=== PATIENT | female | born 1960 | race Caucasian/White ===

== ENCOUNTER 2018-06-18 11:22 | Inpatient (IN) ==
--- NOTE | 2018-06-18 11:52 | ED ---
HPI General Chief complaint: Abdominal Pain Stated complaint: n/v x 3 days Time Seen by Provider: 06/18/18 11:38 Source: patient Mode of arrival: ambulatory Limitations: no limitations History of Present Illness HPI narrative: This 58-year-old female says that for the past 5 days she has been having epigastric pain. Pain comes and goes and can be quite severe at times. She is not having it right now. She went to urgent care center 4 days ago and was diagnosed with gastric reflux and was started on Protonix. She says she has not had any improvement with the Protonix. She has never had an endoscopy she has no history of abdominal surgery she has had a weight loss of 30 pounds over the past year and a half the weight watchers. She has had a sternotomy and open heart surgery at the age of 23. She does sometimes taste her food when she is having the pain. She has not noted particular foods that make it worse. Related Data Home Medications Medication Instructions Recorded Confirmed Multi Vitamin 06/18/18 calcium carbonate-vitamin D3 1 tab PO DAILY 06/18/18 06/18/18 [Calcium 600 + D(3)] pantoprazole [Protonix] 40 mg PO DAILY 06/18/18 06/18/18 Allergies Allergy/AdvReac Type Severity Reaction Status Date / Time No Known Allergies Allergy Verified 06/18/18 11:29 Review of Systems ROS: all other systems reviewed are negative [facility] Medical History Medical History History of anxiety (Acute) Surgical History Surgical History History of heart surgery (Acute) Social History Social History Substance History: No History of Abuse Second Hand Smoke Exposure: No Smoking Status: Never smoker How Often Do You Have a Drink Containing Alcohol: 2 to 3 times a week Exam Narrative Exam Narrative: GENERAL: Well-developed female SKIN: Focused skin assessment warm/dry. HEAD: Atraumatic. Normocephalic. EYES: Pupils equal and round. No scleral icterus. No injection or drainage. ENT: No nasal bleeding or discharge. Mucous membranes pink and moist. NECK: Trachea midline. No JVD. CARDIOVASCULAR: Regular rate and rhythm. . RESPIRATORY: No accessory muscle use. Clear to auscultation. Breath sounds equal bilaterally. GASTROINTESTINAL: Abdomen soft, there is some epigastric and right upper quadrant tenderness without guarding or rigidity, nondistended. Hepatic and splenic margins not palpable. MUSCULOSKELETAL: No obvious deformities. No clubbing. No cyanosis. No edema. NEUROLOGICAL: Awake and alert. No obvious cranial nerve deficits. Motor grossly within normal limits. Normal speech. PSYCHIATRIC: Appropriate mood and affect; insight and judgment normal. Course Initial Documented Vital Signs Temperature 97.9 F 06/18/18 11:26 Pulse Rate 82 06/18/18 11:26 Respiratory Rate 16 06/18/18 11:26 Blood Pressure 181/88 H 06/18/18 11:26 Pulse Oximetry 98 06/18/18 11:26 Last Documented Vital Signs Temperature 97.9 F 06/18/18 11:26 Pulse Rate 74 06/18/18 14:22 Respiratory Rate 16 06/18/18 14:22 Blood Pressure 170/88 H 06/18/18 14:22 Pulse Oximetry 99 06/18/18 14:22 Sign Out Sign Out Data: Patient Sign Out occurred on 06/18/18 at 15:58. Patient's care was discussed, and care was transferred from Taras Leigh MD to Abdoul Melendez MD. Sign Out Comment: This lady had presented with abdominal pain which is been going on for about 5 days. She does have abnormal liver function tests and elevated bilirubin. Ultrasound did not reveal an etiology and CT scan is pending Last updated by Taras Leigh MD at 06/18/18 15:51 Post-Handoff Eval: The patient is a 58-year-old female who was initially seen by Dr. Medina. The patient was signed out with CT of the abdomen and pelvis pending for possible choledocholithiasis. Ultrasound revealed polyps, otherwise unremarkable. However, the patient's LFTs and bilirubin were elevated. CT of the abdomen and pelvis does reveal a 4 mm distal stone within the duct, the patient was covered with Zosyn 4.5 g intravenously. A call was placed to the on-call leather goods i assembler this patient may benefit from ERCP. I discussed the findings with the patient, she is possible with this plan of care and disposition. The patient will be admitted. I discussed the patient with Dr. Tolliver, who agrees with admission to the medical service and transferred to [facility] for ERCP tomorrow. The patient should be n.p.o. after midnight. Medical Decision Making MDM Narrative Medical decision making narrative: An ultrasound of the gallbladder was done and is read as showing multiple echogenic foci that appear to be adherent to the gallbladder wall and not mobile it is thought that these represent small polyps. The gallbladder wall measures 3 mm. On the patient's liver function tests are total bilirubin is 3.2, AST is 524 ALT is 1009. Hemoglobin is 15 7. Patient is having significant pain with his abnormal LFTs. Medical Screen Exam Complete: Yes Emergency Medical Condition: Yes Differential Diagnosis Differential Diagnosis: Differential includes cholelithiasis, cholecystitis, GERD, hiatal hernia Lab Data Lab results reviewed: Yes I reviewed the patient's lab results. Result diagrams: 06/18/18 12:11 06/18/18 12:11 Lab Results 06/18/18 06/18/18 06/18/18 Range/Units 12:11 12:11 12:11 CBC w Diff Auto diff final WBC 7.6 (4.0-11.0) th/mm3 RBC 4.92 (4.00-5.30) mil/mm3 Hgb 15.7 H (11.6-15.3) gm/dL Hct 46.8 H (35.0-46.0) % MCV 95.1 (80.0-100.0) fL MCH 31.9 (27.0-34.0) pg MCHC 33.5 (32.0-36.0) % RDW 11.9 (11.6-17.2) % Plt Count 254 (150-450) th/mm3 MPV 9.3 (7.0-11.0) fL Neut % (Auto) 83.8 H (16.0-70.0) % Lymph % (Auto) 12.1 (9.0-44.0) % Harlan % (Auto) 3.1 (0.0-8.0) % Eos % (Auto) 0.6 (0.0-4.0) % Baso % (Auto) 0.4 (0.0-2.0) % Neut # (Auto) 6.5 (1.8-7.7) th/mm3 Lymph # (Auto) 0.9 L (1.0-4.8) th/mm3 Harlan # (Auto) 0.2 (0.0-0.9) th/mm3 Eos # (Auto) 0.0 (0.0-0.4) th/mm3 Baso # (Auto) 0.0 (0.0-0.2) th/mm3 WBC Differential . Differential Comment . Sodium 142 (136-145) meq/L Potassium 3.5 (3.5-5.1) meq/L Chloride 107 (98-107) meq/L Carbon Dioxide 26.3 (21.0-32.0) meq/L Anion Gap 9 (5-15) meq/L BUN 19 H (7-18) mg/dL Creatinine 0.85 (0.50-1.00) mg/dL Estimated GFR 69 L (>89) mL/min Random Glucose 111 H (74-106) mg/dL Calcium 9.1 (8.5-10.1) mg/dL Total Bilirubin 3.2 H (0.2-1.0) mg/dL AST 524 H (15-37) U/L ALT 1009 H (10-53) U/L Alkaline Phosphatase 222 H (45-117) U/L Troponin I Less than 0.02 L (0.02-0.05) ng/mL Total Protein 7.7 (6.4-8.2) g/dL Albumin 4.2 (3.4-5.0) g/dL Lipase 233 (73-393) U/L Ur Collection Type Clean catch Urine Color Yellow (Yellw/Straw) Urine Clarity Clear (Clear) Urine pH 6.0 (5.0-8.5) Ur Specific [place] Less/equal 1.005 (1.002-1.035) Urine Protein Negative (Neg-Trace) mg/dL Urine Glucose (UA) Negative (Negative) mg/dL Urine Ketones Negative (Negative) mg/dL Urine Occult Blood Small H (Negative) Urine Nitrate Negative (Negative) Urine Bilirubin Negative (Negative) Urine Urobilinogen 0.2 (Less than 2) mg/dL Ur Leukocyte Esterase Negative (Negative) Urine RBC 0-3 (0-3) /hpf Ur Squamous Epith Cells 0-5 (0-5) /hpf Micro UA Comment Culture not ind Ur Microscopic Review Microscopic reviewed Urine Culture Comments Culture not ind Imaging Data Radiologist's impression: Gallbladder Ultrasound 06/18/18 11:48 CONCLUSION: 1. Probable multiple gallbladder wall polyps. Abdomen/Pelvis CT 06/18/18 13:44 CONCLUSION: 1. Choledocholithiasis with 4 mm calculus identified in the distal duct. Intrahepatic and extra hepatic biliary ductal dilatation diffusely. 2. Cholelithiasis. No pericholecystic inflammatory changes. Discharge Plan Discharge Disposition Patient Disposition: 30 Still Patient Discharge Condition Condition: Stable Discharge Details Diagnosis: Choledocholithiasis Physicians Team ED Provider: Abdoul Melendez Primary Care Provider: Reina Thibodeaux Rxs /Orders / Referrals /Forms Prescriptions: No Action pantoprazole [Protonix] 40 mg Tablet,Delayed Release (Dr/Ec) 40 mg PO DAILY RF: 0 calcium carbonate-vitamin D3 [Calcium 600 + D(3)] 600 mg(1,500mg) -400 unit Tablet 1 tab PO DAILY RF: 0 Multi Vitamin RF: 0 Status ED Status: Pending Admission
[2018-06-18 12:20] LABS: Bilirubin,Urine Negative (Negative); Clarity,Urine Clear (Clear); Color,Urine Yellow (Yellw/Straw); Glucose,Urine (UA) Negative (Negative); Leukocyte Esterase,Urine Negative (Negative); Nitrite,Urine Negative (Negative); Specific Gravity,Urine Less/Equal 1.005 (1.002-1.035); Urobilinogen,Urine 0.2 mg/dL (Less than 2)
[2018-06-18 12:24] LABS: Baso % (Auto) 0.4 % (0.0-2.0); Eos % (Auto) 0.6 % (0.0-4.0); Hematocrit 46.8 % (35.0-46.0); Hemoglobin 15.7 gm/dL (11.6-15.3); Lymph # (Auto) 0.9 th/mm3 (1.0-4.8); Lymph % (Auto) 12.1 % (9.0-44.0); Mean Corpuscular HGB Conc 33.5 % (32.0-36.0); Mean Corpuscular Hemoglobin 31.9 pg (27.0-34.0); Mean Corpuscular Volume 95.1 fL (80.0-100.0); Mean Platelet Volume 9.3 fL (7.0-11.0); Mono # (Auto) 0.2 th/mm3 (0.0-0.9); Mono % (Auto) 3.1 % (0.0-8.0); Neut # (Auto) 6.5 th/mm3 (1.8-7.7); Neut % (Auto) 83.8 % (16.0-70.0); Platelet Count 254 th/mm3 (150-450); Red Blood Count 4.92 mil/mm3 (4.00-5.30); Red Cell Distribution Width 11.9 % (11.6-17.2); White Blood Count 7.6 th/mm3 (4.0-11.0)
[2018-06-18 12:29] LABS: RBC,Urine 0-3 /hpf (0-3); Squamous Epithelial Cell,Urine 0-5 /hpf (0-5)
[2018-06-18 12:37] LABS: Chloride 107 meq/L (98-107); Potassium 3.5 meq/L (3.5-5.1); Sodium 142 meq/L (136-145)
[2018-06-18 12:41] LABS: Albumin 4.2 g/dL (3.4-5.0); Anion Gap 9 meq/L (5-15); Blood Urea Nitrogen 19 mg/dL (7-18); Calcium 9.1 mg/dL (8.5-10.1); Carbon Dioxide 26.3 meq/L (21.0-32.0); Glucose,Random 111 mg/dL (74-106); Lipase 233 U/L (73-393)
[2018-06-18 12:44] LABS: Aspartate Aminotransferase 524 U/L (15-37); Glomerular Filtration Rate 69 mL/min (>89)
[2018-06-18 12:46] LABS: Total Protein 7.7 g/dL (6.4-8.2)
[2018-06-18 12:47] LABS: Alkaline Phosphatase 222 U/L (45-117)
[2018-06-18 12:52] LABS: Alanine Aminotransferase 1009 U/L (10-53)
--- NOTE | 2018-06-18 13:14 | US ---
EXAM DATE: 06/18/2018 1:11 PM EST AGE/SEX: 58 years / Female INDICATIONS: Right upper quadrant pain. CLINICAL DATA: This is the patient's initial encounter. Patient reports that signs and symptoms have been present for 4 - 6 days and indicates a pain score of 2/10. MEDICAL/SURGICAL HISTORY: Gastroesophageal reflux disease. Anxiety. . Heart surgery. COMPARISON: . MEASUREMENTS: Liver:__ 12.9 cm. Common Bile Duct:__ 5mm. FINDINGS: Liver: Normal echotexture without focal lesion or ductal dilatation. Portal Vein: Hepatopedal flow seen in portal vein. Common Duct: No intraluminal mass or stone visualized. Gallbladder: There are multiple echogenic foci that appear to be adherent to the gallbladder wall an d not mobile. These are most likely multiple small polyps and the gallbladder wall measures 3 mm. Pancreas: Not well visualized. Right Kidney: Normal echotexture and cortical thickness. No mass or hydronephrosis. Other: None. CONCLUSION: 1. Probable multiple gallbladder wall polyps. Electronically signed by: Kamila Quintanilla MD 06/18/2018 1:13 PM EST
--- NOTE | 2018-06-18 17:01 | CT ---
EXAM DATE: 06/18/2018 4:25 PM EST AGE/SEX: 58 years / Female INDICATIONS: Intermittent epigastric pain. CLINICAL DATA: This is the patient's initial encounter. Patient reports that signs and symptoms have been present for 3 days and indicates a pain score of 2/10. MEDICAL/SURGICAL HISTORY: Cardiovascular disease. . Open heart surgery. ORAL CONTRAST: No oral contrast ingested. RADIATION DOSE: 7.39 CTDI (mGy) COMPARISON: No prior exams available for comparison. TECHNIQUE: Multiple contiguous axial images were obtained through the abdomen and pelvis following b olus infusion of 90 ml Omnipaque 350 (iohexol) nonionic water-soluble contrast as a single exam dos e. No oral contrast ingested. Using automated exposure control and adjustment of the mA and/or kV ac cording to patient size, radiation dose was kept as low as reasonably achievable to obtain optimal di agnostic quality images. DICOM format image data is available electronically for review and comparis on. FINDINGS: Lower Lungs: The visualized lower lungs are clear. Liver: Mild diffuse intrahepatic biliary ductal prominence. The common duct measures 9 mm in diameter diffusely. Small calcified gallstones is seen in the gallbladder. 4 mm calculus is seen in the dista l common duct. Liver is otherwise within normal limits. Spleen: Homogeneous density without enlargement. Pancreas: Unremarkable without mass or calcification. Kidneys: Normal in size and shape. No evidence of mass or hydronephrosis. Adrenal Glands: Unremarkable. Aorta: The aorta and proximal iliac vessels are grossly unremarkable without aneurysmal dilation. Bowel/Mesentery: No evidence of bowel dilatation. No free air or free fluid. Appendix not identified . Abdominal Wall: Intact. Retroperitoneum: No evidence of adenopathy in the retrocrural, para-aortic, or deep pelvic regions. Bladder: Contours are smooth. Reproductive Organs: No abnormal masses or calcifications seen. Inguinal: The inguinal region is unremarkable without evidence of adenopathy. Bony Structures: Unremarkable. CONCLUSION: 1. Choledocholithiasis with 4 mm calculus identified in the distal duct. Intrahepatic and extra hepa tic biliary ductal dilatation diffusely. 2. Cholelithiasis. No pericholecystic inflammatory changes. Electronically signed by: Moshe Meza MD 06/18/2018 5:00 PM EST
[2018-06-18] MEDS ORDERED: Piperacil/Tazo 4.5 GM Premix 4.5 GM/100 ML BAG IV.SIG ONE (17:11)
[2018-06-18] MEDS ORDERED: Acetaminophen 325 MG Tablet PO PRN (17:41)
[2018-06-18] MEDS ORDERED: HYDROmorphone PF Inj 1 MG/ML Ampul IV.PUSH PRN (17:48)
--- NOTE | 2018-06-18 18:09 | XR ---
EXAM DATE: 06/18/2018 6:03 PM EST AGE/SEX: 58 years / Female INDICATIONS: Cough. CLINICAL DATA: This is the patient's initial encounter. Patient reports that signs and symptoms have been present for 1 day and indicates a pain score of 0/10. MEDICAL/SURGICAL HISTORY: . White coat hypertension. . Heart surgery for congenital defect. COMPARISON: [facility], CT ABDOMEN & PELVIS W CONTRAST, 06/18/2018. . FINDINGS: No infiltrate, effusion or pneumothorax demonstrated. Heart size within normal limits. Patient has francisco d previous median sternotomy. CONCLUSION: No evidence of acute cardiopulmonary disease. Electronically signed by: Gregg Aragon MD 06/18/2018 6:08 PM EST
[2018-06-18] MEDS: KCL 20 mEq/NACL 0.45% Inj 1,000 ML IV.CONT SCH (18:23)
[2018-06-18] MEDS: Pantoprazole Inj 40 MG Vial IV.PUSH SCH (18:23)
[2018-06-18] MEDS: Senna/Docusate Sodium 8.6/50 MG Tablet PO SCH (21:17)
[2018-06-19] MEDS ORDERED: Chlorhexidine Gluconate 2% 1 Pack (2 Cloths) TOPICAL ONE (02:15)
[2018-06-19 04:59] LABS: Baso % (Auto) 0.7 % (0.0-2.0); Eos # (Auto) 0.1 th/mm3 (0.0-0.4); Eos % (Auto) 2.7 % (0.0-4.0); Hematocrit 41.5 % (35.0-46.0); Hemoglobin 14.3 gm/dL (11.6-15.3); Lymph # (Auto) 1.6 th/mm3 (1.0-4.8); Lymph % (Auto) 32.8 % (9.0-44.0); Mean Corpuscular HGB Conc 34.3 % (32.0-36.0); Mean Corpuscular Hemoglobin 32.5 pg (27.0-34.0); Mean Corpuscular Volume 94.6 fL (80.0-100.0); Mean Platelet Volume 9.2 fL (7.0-11.0); Mono # (Auto) 0.4 th/mm3 (0.0-0.9); Mono % (Auto) 8.2 % (0.0-8.0); Neut # (Auto) 2.7 th/mm3 (1.8-7.7); Neut % (Auto) 55.6 % (16.0-70.0); Platelet Count 219 th/mm3 (150-450); Red Blood Count 4.39 mil/mm3 (4.00-5.30); Red Cell Distribution Width 12.6 % (11.6-17.2); White Blood Count 4.8 th/mm3 (4.0-11.0)
[2018-06-19 05:30] LABS: Albumin 3.8 g/dL (3.4-5.0); Anion Gap 9 meq/L (5-15); Aspartate Aminotransferase 253 U/L (15-37); Blood Urea Nitrogen 15 mg/dL (7-18); Calcium 8.8 mg/dL (8.5-10.1); Carbon Dioxide 25.5 meq/L (21.0-32.0); Chloride 107 meq/L (98-107); Glomerular Filtration Rate 85 mL/min (>89); Glucose,Random 95 mg/dL (74-106); Lipase 308 U/L (73-393); Potassium 3.7 meq/L (3.5-5.1); Sodium 141 meq/L (136-145)
[2018-06-19 05:32] LABS: Alanine Aminotransferase 739 U/L (10-53)
[2018-06-19 05:34] LABS: Alkaline Phosphatase 215 U/L (45-117)
[2018-06-19] MEDS: KCL 20 mEq/NACL 0.45% Inj 1,000 ML IV.CONT SCH ×2 (05:34→21:39)
[2018-06-19] MEDS ORDERED: LORazepam 0.5 MG Tablet PO ONE (06:45)
[2018-06-19] MEDS: Senna/Docusate Sodium 8.6/50 MG Tablet PO SCH ×2 (08:53→21:39)
--- NOTE | 2018-06-19 09:20 | P.HPIM ---
History of Present Illness Primary Care Physician: Reina Thibodeaux MD History of Present Illness: This is a 58-year-old female patient with a past medical history which includes white coat hypertension, ostium secundum atrial septal defect repaired at age 24, hyperlipidemia and insomnia. Patient reports that for the past 5 days she has been having intermittent epigastric pain. Pain can be quite severe at times. She is not having it right now. She went to urgent care center 4 days ago and was diagnosed with gastric reflux and was started on Protonix. She says she has not had any improvement with the Protonix. She has never had an endoscopy she has no history of abdominal surgery. Patient reports that she has been doing weight watchers for the past year and a half and has lost over 30 pounds. She does sometimes taste her food when she is having the pain. Abdominal pain worse after eating. Patient denies fevers chills nausea vomiting chest pain or shortness of breath. PMH: white coat hypertension, ostium secundum atrial septal defect repaired at age 24 , hyperlipidemia and insomnia PsxH: ostium secundum atrial septal defect with surgical repair at age 24 Colonoscopy, hemorrhoidectomy FMH: Breast cancer, coronary artery disease Social history: , retired Occasional EtOH use Denies tobacco use now or in the past Diagnosis (1) Choledocholithiasis: Inpatient Certification Inpatient Certification: I certify that the inpatient services were ordered in accordance with Medicare regulations governing the order. This includes certification that hospital inpatient services are reasonable and necessary and in the case of services not specified as inpatient-only under 42 CFR 419.22(n), that they are appropriately provided as inpatient services in accordance to with the 2-midnight benchmark under 43 CFR 412.3(e) Estimated Total Length of Stay (Days): 3 Plans for Post Hospital Care: Home Medications and Allergies Allergies Allergy/AdvReac Type Severity Reaction Status Date / Time No Known Allergies Allergy Verified 06/18/18 11:29 Home Medications Medication Instructions Recorded Confirmed Type Multi Vitamin 06/18/18 History calcium carbonate-vitamin D3 1 tab PO DAILY 06/18/18 06/18/18 History [Calcium 600 + D(3)] pantoprazole [Protonix] 40 mg PO DAILY 06/18/18 06/18/18 History Active Medications: Active Medications Acetaminophen (Tylenol) 650 mg PO Q4H PRN PRN Reason: Temp > 100.4 Hydrocodone Bitart/Acetaminophen ([place] 5/325) 1 tab PO Q4H PRN PRN Reason: pain 1-5 Last Admin: 06/19/18 05:35 Dose: 1 tab Al Hydroxide/Mg Hydroxide (Milk Of Arnel Liq) 30 ml PO Q12H PRN PRN Reason: Mild Constipation Hydromorphone HCl (Dilaudid Pf Inj) 0.5 mg IV.PUSH Q4H PRN PRN Reason: pain 6 - 10 Last Admin: 06/19/18 00:27 Dose: 0.5 mg Potassium Chloride/Sodium Chloride (Potassium Chlor 20 Meq/Nacl 0.45% Inj) 1, 000 mls @ 84 mls/hr IV.CONT .[id number] [facility] Last Admin: 06/19/18 05:34 Dose: 84 mls/hr Lactated Ringer's (Lr 1000 Ml Inj) 1,000 mls @ 30 mls/hr IV.CONT .Q24H ONE Stop: 06/20/18 02:14 Ondansetron HCl (Zofran Inj) 4 mg IV.PUSH Q6H PRN PRN Reason: NAUSEA OR VOMITING Pantoprazole Sodium (Protonix Inj) 40 mg IV.PUSH Q24H [facility] Last Admin: 06/18/18 18:23 Dose: 40 mg Senna/Docusate Sodium (Suzie-Colace) 1 tab PO BID [facility] Last Admin: 06/19/18 08:53 Dose: Not Given Sodium Chloride (Ns Flush) 2 ml IV.FLUSH PRN PRN PRN Reason: FLUSH AFTER USING IV ACCESS Physical Exam Vital signs: Last Vital Signs Temp 98.3 F 06/19/18 08:00 Pulse 78 06/19/18 09:00 Resp 20 06/19/18 08:00 BP 182/90 H 06/19/18 09:00 Pulse Ox 99 06/19/18 08:00 Narrative: GENERAL: This is a well-nourished, well-developed patient, in no apparent distress. CARDIOVASCULAR: Regular rate and rhythm without murmurs, gallops, or rubs. RESPIRATORY: Clear to auscultation. Breath sounds equal bilaterally. No wheezes , rales, or rhonchi. GASTROINTESTINAL: Abdomen soft, non-tender, nondistended. Normal active bowel sounds MUSCULOSKELETAL: Extremities without clubbing, cyanosis, or edema. NEURO: Alert & Oriented x4 to person, place, time, situation. Moves all ext x4 Results Labs CBC & Chem 7: 06/20/18 03:53 06/20/18 03:53 Caprinjaneen VTE Risk Assessment Capnatalie VTE Risk Assessment: No/Low Risk (score <= 1) Deandrerini Risk Assessment Model: Point Value = 1 Point Value = 2 Point Value = 3 Point Value = 5 Age 41-60 Minor surgery BMI > 25 kg/m2 Swollen legs Varicose veins or History of unexplained or recurrent spontaneous Oral contraceptives or hormone replacement Sepsis (< 1 month) Serious lung disease, including pneumonia (< 1 month) Abnormal pulmonary function Acute myocardial infarction Congestive heart failure (< 1 month) History of inflammatory bowel disease Medical patient at bed rest Age 61-74 Arthroscopic surgery Major open surgery (> 45 min) Laparoscopic surgery (> 45 min) Malignancy Confined to bed (> 72 hours) Immobilizing plaster cast Central venous access Age >= 75 History of VTE Family history of VTE Factor V Leiden Prothrombin [id number] Lupus anticoagulant Anticardiolipin antibodies Elevated serum homocysteine Heparin-induced thrombocytopenia Other congenital or acquired thrombophilia Stroke (< 1 month) Elective arthroplasty Hip, pelvis, or leg fracture Acute spinal cord injury (< 1 month) Prophylaxis Regimen: Total Risk Factor Score Risk Level Prophylaxis Regimen 0-1 Low Early ambulation 2 Moderate Order ONE of the following: *Sequential Compression Device (SCD) *Heparin 5000 units SQ BID 3-4 Higher Order ONE of the following medications: *Heparin 5000 units SQ TID *Enoxaparin/Lovenox 40 mg SQ daily (WT < 150 kg, CrCl > 30 mL/min) *Enoxaparin/Lovenox 30 mg SQ daily (WT < 150 kg, CrCl > 10-29 mL/min) *Enoxaparin/Lovenox 30 mg SQ BID (WT < 150 kg, CrCl > 30 mL/min) AND/OR *Sequential Compression Device (SCD) 5 or more Highest Order ONE of the following medications: *Heparin 5000 units SQ TID (Preferred with Epidurals) *Enoxaparin/Lovenox 40 mg SQ daily (WT < 150 kg, CrCl > 30 mL/min) *Enoxaparin/Lovenox 30 mg SQ daily (WT < 150 kg, CrCl > 10-29 mL/min) *Enoxaparin/Lovenox 30 mg SQ BID (WT < 150 kg, CrCl > 30 mL/min) AND *Sequential Compression Device (SCD) Assessment and Plan Assessment (1) Choledocholithiasis: Code(s): K80.50 - Calculus of bile duct without cholangitis or cholecystitis without obstruction Status: Acute Plan This is a 58-year-old female patient with a past medical history which includes whitecoat hypertension, ostium secundum atrial septal defect repaired at age 24 , hyperlipidemia and insomnia. Patient reports that for the past 5 days she has been having intermittent epigastric pain. Pain can be quite severe at times. She is not having it right now. She went to urgent care center 4 days ago and was diagnosed with gastric reflux and was started on Protonix. She says she has not had any improvement with the Protonix. She has never had an endoscopy she has no history of abdominal surgery. Patient reports that she has been doing weight watchers for the past year and a half and has lost over 30 pounds. She does sometimes taste her food when she is having the pain. She has not noted particular foods that make it worse. Patient denies fevers chills nausea vomiting chest pain or shortness of breath. Choledocholithiasis On admission total bilirubin 3.2, AST 524, ALT 1009, alkaline phosphatase 222 (06/19/18) total bilirubin bilirubin 1.4, AST 253, ALT 739, alkaline phosphatase 215 Chest X-Ray 06/18/18- No evidence of acute cardiopulmonary disease. Gallbladder Ultrasound 06/18/18 - Probable multiple gallbladder wall polyps. Abdomen/Pelvis CT 06/18/18 1. Choledocholithiasis with 4 mm calculus identified in the distal duct. Intrahepatic and extra hepatic biliary ductal dilatation diffusely. 2. Cholelithiasis. No pericholecystic inflammatory changes. MRCP ordered Zosyn x1 given in emergency department 06/18/2018 N.p.o. IV fluids GI consultation, appreciate input plan for ERCP with stent and sphincterotomy Consult to general surgery Dilaudid IV as needed for pain CBC and CMP in AM Hperlipidemia Not on medication follows a low-fat low-cholesterol diet Attending Attestation The exam, history, and the medical decision-making described in the above note were completed with the assistance of the mid-level provider. I reviewed and agree with the findings presented. I attest that I had a [id number] encounter with the patient on the same day, and personally performed and documented my assessment and findings in the medical record. Patient examined. Assessment and plan formulated with María Elena Herrera PA-C. I agree with the above. H&P: Quality VTE Deep Vein Thrombosis/Pulmonary Embolism Present on Admission: No
--- NOTE | 2018-06-19 10:19 | P.CONGI ---
History of Present Illness Consult date: 06/19/18 Consult reason: Choledocholithiasis Chief complaint: Choledocholithiasis History of Present Illness: This patient is a 58-year-old female who was admitted to [facility] on 06/18/2018 with report of epigastric pain times 5 days. On consultation, patient reports onset of epigastric pain 06/14/2018. Patient describes the pain as a pressure and ache that is intermittent. At its worst patient rated same at 7 out of 10. At this time patient denies any discomfort. Patient states that she visited an urgent care center 3 days after onset of pain and was treated for acid reflux. Patient endorses that pain is aggravated by eating at which time she states she experiences increased pressure with reflux of undigested food. CT done on admission reveals choledocholithiasis with 4 mm stone in the distal duct and diffuse intra-and extra hepatic biliary ductal dilatation. Our service has been consulted to evaluate patient for choledocholithiasis Patient denies heartburn, difficulty swallowing or painful swallowing. Patient denies ever having had an EGD in the past. Patient states she drinks socially 2 beers weekly and denies any use of tobacco. Patient denies any family history of gastrointestinal disorders. Denies use of blood thinners or NSAIDs. Patient states last colonoscopy was 1 year ago and to her recollection it was unremarkable. She endorses history of hemorrhoids and denies any noted rectal bleeding. She states she has one soft brown BM daily and denies any diarrhea or constipation. Takes Metamucil fiber pills daily to avoid constipation. <Mahogany Mccormick - Last Filed: 06/19/18 12:01> Chief complaint: Choledocholithiasis <Elizabeth Tolliver - Last Filed: 06/19/18 15:11> Review of Systems All other systems reviewed negative except as stated in HPI <Mahogany Mccormick - Last Filed: 06/19/18 12:01> PMFSH - History History Provided By: Patient - Medical History Medical History: Medical History (Last Reviewed 06/18/18 @ 20:53 by Breanna Martinez RN) History of anxiety - Surgical History Surgical History: Surgical History (Last Reviewed 06/18/18 @ 20:53 by Breanna Martinez RN) History of heart surgery - Family History Family History: Family History (Last Updated 06/18/18 @ 20:53 by Breanna Martinez, JOSE MANUEL) Other No pertinent family history - Tobacco History Second Hand Smoke Exposure: No Tobacco Use In Past 30 Days: No Smoking Status: Former smoker - Alcohol History How Often Do You Have a Drink Containing Alcohol: 2 to 4 times a month - Substance Use History Substance History: No History of Abuse - Immunization History Tetanus Immunization: >5 Years Hx Influenza Vaccine This Season: No <Mahogany Mccormick - Last Filed: 06/19/18 12:01> - Medical History Medical History: Medical History (Last Reviewed 06/18/18 @ 20:53 by Breanna Martinez, RN) History of anxiety - Surgical History Surgical History: Surgical History (Last Reviewed 06/18/18 @ 20:53 by Breanna Martinez, RN) History of heart surgery - Family History Family History: Family History (Last Updated 06/18/18 @ 20:53 by Breanna Martinez RN) Other No pertinent family history <Elizabeth Tolliver - Last Filed: 06/19/18 15:11> Medications and Allergies Active Medications: Active Medications Acetaminophen (Tylenol) 650 mg PO Q4H PRN PRN Reason: Temp > 100.4 Hydrocodone Bitart/Acetaminophen ([place] 5/325) 1 tab PO Q4H PRN PRN Reason: pain 1-5 Last Admin: 06/19/18 05:35 Dose: 1 tab Al Hydroxide/Mg Hydroxide (Milk Of Arnel Liq) 30 ml PO Q12H PRN PRN Reason: Mild Constipation Enalaprilat (Vasotec Inj) 1.25 mg IV.PUSH Q6H PRN PRN Reason: SYS BP GREATER THAN 160 MMHG Last Admin: 06/19/18 09:56 Dose: 1.25 mg Hydromorphone HCl (Dilaudid Pf Inj) 0.5 mg IV.PUSH Q4H PRN PRN Reason: pain 6 - 10 Last Admin: 06/19/18 00:27 Dose: 0.5 mg Potassium Chloride/Sodium Chloride (Potassium Chlor 20 Meq/Nacl 0.45% Inj) 1, 000 mls @ 84 mls/hr IV.CONT .[id number] NAZANIN Last Admin: 06/19/18 05:34 Dose: 84 mls/hr Lactated Ringer's (Lr 1000 Ml Inj) 1,000 mls @ 30 mls/hr IV.CONT .Q24H ONE Stop: 06/20/18 02:14 Ondansetron HCl (Zofran Inj) 4 mg IV.PUSH Q6H PRN PRN Reason: NAUSEA OR VOMITING Pantoprazole Sodium (Protonix Inj) 40 mg IV.PUSH Q24H [facility] Last Admin: 06/18/18 18:23 Dose: 40 mg Senna/Docusate Sodium (Suzie-Colace) 1 tab PO BID [facility] Last Admin: 06/19/18 08:53 Dose: Not Given Sodium Chloride (Ns Flush) 2 ml IV.FLUSH PRN PRN PRN Reason: FLUSH AFTER USING IV ACCESS <Mahogany Mccormick - Last Filed: 06/19/18 12:01> Active Medications: Active Medications Acetaminophen (Tylenol) 650 mg PO Q4H PRN PRN Reason: Temp > 100.4 Hydrocodone Bitart/Acetaminophen ([place] 5/325) 1 tab PO Q4H PRN PRN Reason: pain 1-5 Last Admin: 06/19/18 13:42 Dose: 1 tab Al Hydroxide/Mg Hydroxide (Milk Of Magngr[place] Liq) 30 ml PO Q12H PRN PRN Reason: Mild Constipation Enalaprilat (Vasotec Inj) 1.25 mg IV.PUSH Q6H PRN PRN Reason: SYS BP GREATER THAN 160 MMHG Last Admin: 06/19/18 09:56 Dose: 1.25 mg Hydromorphone HCl (Dilaudid Pf Inj) 0.5 mg IV.PUSH Q4H PRN PRN Reason: pain 6 - 10 Last Admin: 06/19/18 00:27 Dose: 0.5 mg Potassium Chloride/Sodium Chloride (Potassium Chlor 20 Meq/Nacl 0.45% Inj) 1, 000 mls @ 84 mls/hr IV.CONT .[id number] [facility] Last Admin: 06/19/18 05:34 Dose: 84 mls/hr Lactated Ringer's (Lr 1000 Ml Inj) 1,000 mls @ 30 mls/hr IV.CONT .Q24H ONE Stop: 06/20/18 02:14 Ondansetron HCl (Zofran Inj) 4 mg IV.PUSH Q6H PRN PRN Reason: NAUSEA OR VOMITING Pantoprazole Sodium (Protonix Inj) 40 mg IV.PUSH Q24H [facility] Last Admin: 06/18/18 18:23 Dose: 40 mg Senna/Docusate Sodium (Suzie-Colace) 1 tab PO BID [facility] Last Admin: 06/19/18 08:53 Dose: Not Given Sodium Chloride (Ns Flush) 2 ml IV.FLUSH PRN PRN PRN Reason: FLUSH AFTER USING IV ACCESS <ZelalemAvery kirkElizabeth - Last Filed: 06/19/18 15:11> Allergies Allergy/AdvReac Type Severity Reaction Status Date / Time No Known Allergies Allergy Verified 06/18/18 11:29 Home Medications Medication Instructions Recorded Confirmed Type Multi Vitamin 06/18/18 History calcium carbonate-vitamin D3 1 tab PO DAILY 06/18/18 06/18/18 History [Calcium 600 + D(3)] pantoprazole [Protonix] 40 mg PO DAILY 06/18/18 06/18/18 History Exam Vital signs: Vital Signs 06/18/18 11:26 06/18/18 12:19 06/18/18 14:22 Temperature 97.9 F Pulse Rate 82 74 74 Respiratory Rate 16 16 16 Blood Pressure 181/88 H 177/91 H 170/88 H Pulse Oximetry 98 97 99 06/18/18 19:50 06/19/18 00:00 06/19/18 05:10 Temperature 97.7 F 97.2 F L 97.7 F Pulse Rate 73 61 71 Respiratory Rate 16 18 18 Blood Pressure 143/80 H 161/89 H 184/95 H Pulse Oximetry 97 96 98 06/19/18 08:00 06/19/18 09:00 Temperature 98.3 F Pulse Rate 78 78 Respiratory Rate 20 Blood Pressure 190/88 H 182/90 H Pulse Oximetry 99 Intake & Output 06/18/18 06/19/18 06/19/18 18:59 06:59 18:59 Intake Total 100 / 100 1120 / 1120 Balance 100 / 100 1120 / 1120 Weight 62 kg 63.8 kg Intake: IV 100 / 100 1000 / 1000 Potassium Chlor 20 mEq/NACL 0. 1000 / 1000 45% Inj 1,000 ML @ 84 mls/hr IV .CONT .[id number] [facility] Rx#: [id number] Zosyn 4.5 GM Premix 4.5 gm In 100 / 100 100 ml @ 200 mls/hr IV.SIG ONCE ONE Rx#:[id number] Oral 120 / 120 Other: # Voids 2 Date of Last Bowel Movement 06/18/18 Weight On Admission 63.8 kg - Constitutional no acute distress - Routine HEENT Exam Head: Present: normocephalic - Routine Respiratory Exam Present: CTA bilaterally. Absent: accessory muscle use - Routine Cardiovascular Exam Present: RRR - Routine Abdominal Exam Present: soft, normoactive bowel sounds. Absent: tenderness, distended, guarding, firm - Routine Extremities Exam Present: pulses intact. Absent: edema - Routine Skin Exam Present: dry, warm - Routine Neurological Exam Present: alert - Routine Psychiatric Exam Present: normal affect, cooperative <Mahogany Mccormick - Last Filed: 06/19/18 12:01> Vital signs: Vital Signs 06/18/18 19:50 06/19/18 00:00 06/19/18 05:10 Temperature 97.7 F 97.2 F L 97.7 F Pulse Rate 73 61 71 Respiratory Rate 16 18 18 Blood Pressure 143/80 H 161/89 H 184/95 H Pulse Oximetry 97 96 98 06/19/18 08:00 06/19/18 09:00 06/19/18 12:00 Temperature 98.3 F 98.6 F Pulse Rate 78 78 74 Respiratory Rate 20 20 Blood Pressure 190/88 H 182/90 H 181/91 H Pulse Oximetry 99 99 Intake & Output 06/18/18 06/19/18 06/19/18 18:59 06:59 18:59 Intake Total 100 / 100 1120 / 1120 Balance 100 / 100 1120 / 1120 Weight 62 kg 63.8 kg Intake: IV 100 / 100 1000 / 1000 Potassium Chlor 20 mEq/NACL 0. 1000 / 1000 45% Inj 1,000 ML @ 84 mls/hr IV .CONT .[id number] [facility] Rx#: [id number] Zosyn 4.5 GM Premix 4.5 gm In 100 / 100 100 ml @ 200 mls/hr IV.SIG ONCE ONE Rx#:[id number] Oral 120 / 120 Other: # Voids 2 Date of Last Bowel Movement 06/18/18 Weight On Admission 63.8 kg <Elizabeth Tolliver - Last Filed: 06/19/18 15:11> Results - Labs CBC & Chem 7: 11/09/18 04:35 06/19/18 04:35 Labs: Laboratory Results - last 24 hr 06/18/18 06/18/18 06/18/18 12:11 12:11 12:11 CBC w Diff Auto diff final WBC 7.6 RBC 4.92 Hgb 15.7 H Hct 46.8 H MCV 95.1 MCH 31.9 MCHC 33.5 RDW 11.9 Plt Count 254 MPV 9.3 Neut % (Auto) 83.8 H Lymph % (Auto) 12.1 Harrison % (Auto) 3.1 Eos % (Auto) 0.6 Baso % (Auto) 0.4 Neut # (Auto) 6.5 Lymph # (Auto) 0.9 L Harrison # (Auto) 0.2 Eos # (Auto) 0.0 Baso # (Auto) 0.0 WBC Differential . Differential Comment . Sodium 142 Potassium 3.5 Chloride 107 Carbon Dioxide 26.3 Anion Gap 9 BUN 19 H Creatinine 0.85 Estimated GFR 69 L Random Glucose 111 H Calcium 9.1 Total Bilirubin 3.2 H AST 524 H ALT 1009 H Alkaline Phosphatase 222 H Troponin I Less than 0.02 L Total Protein 7.7 Albumin 4.2 Lipase 233 Ur Collection Type Clean catch Urine Color Yellow Urine Clarity Clear Urine pH 6.0 Ur Specific Nelson Less/equal 1.005 Urine Protein Negative Urine Glucose (UA) Negative Urine Ketones Negative Urine Occult Blood Small H Urine Nitrate Negative Urine Bilirubin Negative Urine Urobilinogen 0.2 Ur Leukocyte Esterase Negative Urine RBC 0-3 Ur Squamous Epith Cells 0-5 Micro UA Comment Culture not ind Ur Microscopic Review Microscopic reviewed Urine Culture Comments Culture not ind 06/19/18 06/19/18 04:35 04:35 CBC w Diff WBC 4.8 RBC 4.39 Hgb 14.3 Hct 41.5 MCV 94.6 MCH 32.5 MCHC 34.3 RDW 12.6 Plt Count 219 MPV 9.2 Neut % (Auto) 55.6 Lymph % (Auto) 32.8 Harrison % (Auto) 8.2 H Eos % (Auto) 2.7 Baso % (Auto) 0.7 Neut # (Auto) 2.7 Lymph # (Auto) 1.6 Harrison # (Auto) 0.4 Eos # (Auto) 0.1 Baso # (Auto) 0.0 WBC Differential . Differential Comment Auto diff final Sodium 141 Potassium 3.7 Chloride 107 Carbon Dioxide 25.5 Anion Gap 9 BUN 15 Creatinine 0.71 Estimated GFR 85 L Random Glucose 95 Calcium 8.8 Total Bilirubin 1.4 H AST 253 H ALT 739 H Alkaline Phosphatase 215 H Troponin I Total Protein 7.0 D Albumin 3.8 Lipase 308 Ur Collection Type Urine Color Urine Clarity Urine pH Ur Specific Nelson Urine Protein Urine Glucose (UA) Urine Ketones Urine Occult Blood Urine Nitrate Urine Bilirubin Urine Urobilinogen Ur Leukocyte Esterase Urine RBC Ur Squamous Epith Cells Micro UA Comment Ur Microscopic Review Urine Culture Comments - Imaging Impressions Chest X-Ray 06/18/18 00:00 CONCLUSION: No evidence of acute cardiopulmonary disease. Gallbladder Ultrasound 06/18/18 11:48 CONCLUSION: 1. Probable multiple gallbladder wall polyps. Abdomen/Pelvis CT 06/18/18 13:44 CONCLUSION: 1. Choledocholithiasis with 4 mm calculus identified in the distal duct. Intrahepatic and extra hepatic biliary ductal dilatation diffusely. 2. Cholelithiasis. No pericholecystic inflammatory changes. <Mahogany Mccormick - Last Filed: 06/19/18 12:01> - Labs CBC & Chem 7: 06/19/18 04:35 06/19/18 04:35 Labs: Laboratory Results - last 24 hr 06/19/18 06/19/18 04:35 04:35 WBC 4.8 RBC 4.39 Hgb 14.3 Hct 41.5 MCV 94.6 MCH 32.5 MCHC 34.3 RDW 12.6 Plt Count 219 MPV 9.2 Neut % (Auto) 55.6 Lymph % (Auto) 32.8 Harrison % (Auto) 8.2 H Eos % (Auto) 2.7 Baso % (Auto) 0.7 Neut # (Auto) 2.7 Lymph # (Auto) 1.6 Harrison # (Auto) 0.4 Eos # (Auto) 0.1 Baso # (Auto) 0.0 WBC Differential . Differential Comment Auto diff final Sodium 141 Potassium 3.7 Chloride 107 Carbon Dioxide 25.5 Anion Gap 9 BUN 15 Creatinine 0.71 Estimated GFR 85 L Random Glucose 95 Calcium 8.8 Total Bilirubin 1.4 H AST 253 H ALT 739 H Alkaline Phosphatase 215 H Total Protein 7.0 D Albumin 3.8 Lipase 308 - Imaging Impressions Chest X-Ray 06/18/18 00:00 CONCLUSION: No evidence of acute cardiopulmonary disease. Abdomen/Pelvis CT 06/18/18 13:44 CONCLUSION: 1. Choledocholithiasis with 4 mm calculus identified in the distal duct. Intrahepatic and extra hepatic biliary ductal dilatation diffusely. 2. Cholelithiasis. No pericholecystic inflammatory changes. Cholangiopancreatography MRI 06/19/18 08:00 CONCLUSION: 1. Distal common bile duct stone with mild dilatation of the common bile duct measuring 9 mm in diameter. 2. No evidence of significant intrahepatic biliary duct dilatation. 3. No evidence of significant pericholecystic inflammatory disease. <Elizabeth Tolliver - Last Filed: 06/19/18 15:11> Assessment and Plan (1) Choledocholithiasis Status: Acute Code(s): K80.50 - Calculus of bile duct without cholangitis or cholecystitis without obstruction - Plan This patient is a 58-year-old female who was admitted to [facility] on 06/18/2018 with report of epigastric pain times 5 days. On consultation, patient reports onset of epigastric pain 06/14/2018. Patient describes the pain as a pressure and ache that is intermittent. At its worst patient rated same at 7 out of 10. At this time patient denies any discomfort. Patient states that she visited an urgent care center 3 days after onset of pain and was treated for acid reflux. Patient endorses that pain is aggravated by eating at which time she states she experiences increased pressure with reflux of undigested food. CT done on admission reveals choledocholithiasis with 4 mm stone in the distal duct and diffuse intra-and extra hepatic biliary ductal dilatation. Our service has been consulted to evaluate patient for choledocholithiasis Patient denies heartburn, difficulty swallowing or painful swallowing. Patient denies ever having had an EGD in the past. Patient states she drinks socially 2 beers weekly and denies any use of tobacco. Patient denies any family history of gastrointestinal disorders. Denies use of blood thinners or NSAIDs. Patient states last colonoscopy was 1 year ago and to her recollection it was unremarkable. She endorses history of hemorrhoids and denies any noted rectal bleeding. She states she has one soft brown BM daily and denies any diarrhea or constipation. Takes Metamucil fiber pills daily to avoid constipation. Choledocholithiasis 06/18/2018 CT abdomen and pelvis revealed the following findings: 1. Choledocholithiasis with 4 mm calculus identified in the distal duct. Intrahepatic and extra hepatic biliary ductal dilatation diffusely. 2. Cholelithiasis. No pericholecystic inflammatory changes. 06/18/2018 gallbladder ultrasound revealed the following findings.:Probable multiple gallbladder wall polyps. 06/19/2018 WBC 4.8 hemoglobin 14.3 hematocrit 41.5 Total bilirubin 1.4 AST 253 ALT 739 alk phos 215 lipase 308. Plan -N.p.o. -MRCP for further evaluation -ERCP planned -Analgesia and antiemetic as per attending -PPI -IV hydration -Supportive care -Further recommendations to follow This patient has been seen by myself and Dr. Tolliver and this note is written on her behalf - Attending Attestation <Mahgoany Mccormick - Last Filed: 06/19/18 12:01> (1) Choledocholithiasis Status: Acute Code(s): K80.50 - Calculus of bile duct without cholangitis or cholecystitis without obstruction - Attending Attestation seen, examined agree with above ercp today history of abnormal ekg for many years general surgery consult for possible cholecystectomy risk/benefits discussed iv antibiotic prophylax -Unasyn 1 dose -within 60 min before procedure <Elizabeth Tolliver - Last Filed: 06/19/18 15:11>
--- NOTE | 2018-06-19 12:51 | MR ---
EXAM DATE: 06/19/2018 12:37 PM EST AGE/SEX: 58 years / Female INDICATIONS: Abdominal pain. CLINICAL DATA: This is the patient's initial encounter. Patient reports that signs and symptoms have been present for 3 days and indicates a pain score of 5/10. MEDICAL/SURGICAL HISTORY: None. . Cardiac for congenital defect. COMPARISON: [facility], CT ABDOMEN & PELVIS W CONTRAST, 06/18/2018. . TECHNIQUE: Multiplanar, multisequence images of the abdomen were obtained without contrast including dedicated cholangiographic images. FINDINGS: Liver: The liver is homogeneous and normal in signal intensity with no focal defects. Intrahepatic Bile Ducts: There is no intrahepatic biliary ductal dilatation. Common Bile Duct: The common bile duct is mildly distended measuring 9 mm in diameter. Small filling defect is identified in the distal common bile duct at the level the ampulla. Gallbladder: The gallbladder is normal with no evidence for cholelithiasis, gallbladder wall thicken ing, or pericholecystic fluid. Pancreas: The pancreas appears normal in signal with no focal parenchymal abnormalities. The pancrea tic duct is normal in caliber with no filling defects, or obstructing lesions identified. CONCLUSION: 1. Distal common bile duct stone with mild dilatation of the common bile duct measuring 9 mm in diam eter. 2. No evidence of significant intrahepatic biliary duct dilatation. 3. No evidence of significant pericholecystic inflammatory disease. Electronically signed by: Bhupinder Vanessa MD 06/19/2018 12:50 PM EST
[2018-06-19] MEDS ORDERED: Ampicillin/Sulbactam Inj 3 GM in Sodium Chloride 0.9% Inj 100 ML IV.SIG ONE (15:30)
--- NOTE | 2018-06-19 15:48 | ECG ---
Date Performed: 06/18/2018 Time Performed: 11:54:20 PTAGE: 58 years EKG: Sinus rhythm POSSIBLE LEFT ATRIAL ENLARGEMENT LOW QRS VOLTAGE IN PRECORDIAL LEADS POSSIBLE ANTERIOR MYOCARDIAL IN FARCTION INFERIOR MYOCARDIAL INFARCTION MODERATE T-WAVE ABNORMALITY, CONSIDER LATERAL ISCHEMIA Since previous tracing, no significant change noted ABNORMAL ECG PREVIOUS TRACING : 10/06/2002 09.32 DOCTOR: Jeff Roman Interpretating Date/Time 06/19/2018 15:45:36
[2018-06-19] MEDS ORDERED: Sugammadex Inj 200 MG/2 ML Vial IV.PUSH ONE (17:34)
--- NOTE | 2018-06-19 18:58 | GIPROC ---
[facility] [address] [facility]. [facility], [address] ERCP PROCEDURE REPORT EXAM DATE: 06/19/2018 PATIENT NAME: Araceli Bellamy MR #: [id number] BIRTHDATE: 1960 ATTENDING: Migel Teague MD ORDER #: [id number] STUDIO CAMERA OPERATOR: Earl Cope and Shanique Fletcher STATUS: inpatient INDICATIONS: The patient is a 58 yr old female here for an ERCP due to abnormal abdominal CT and established bile duct stone(s) PROCEDURE PERFORMED: ERCP with sphincterotomy/papillotomy ERCP with removal of calculus/calculi MEDICATIONS: None and Per Anesthesia. CONSENT: The patient understands the risks and benefits of the procedure and understands that these risks include, but are not limited to: sedation, allergic reaction, infection, perforation and/or bleeding. Alternative means of evaluation and treatment include, among others: physical exam, x-rays, and/or surgical intervention. The patient elects to proceed with this endoscopic procedure. medical equipment was checked for proper function. Hand hygiene and appropriate measures for infection prevention was taken. After the risks, benefits and alternatives of the procedure were thoroughly explained, Informed was verified, confirmed and timeout was successfully executed by the treatment team. With the patient in left semi-prone position, medications were administered intravenously.The Pentax [id number] was passed from the mouth into the esophagus and further advanced from the esophagus into the stomach. From stomach scope was directed to the second portion of the duodenum. Major papilla was aligned with the duodenoscope. The scope position was confirmed fluoroscopically. Rest of the findings/therapeutics are given below. The scope was then completely withdrawn from the patient and the procedure completed. The pulse, BP, and O2 saturation were monitored and documented by the physician and the nursing staff throughout the entire procedure. The patient was cared for as planned according to standard protocol. The patient was then discharged to recovery in stable condition and with appropriate post procedure care. The ampulla was located the second portion of the duodenum. big mucosal caal The ampulla appeared normal. A single stone was seen in the common bile duct. Mildly dilated CBD Precut /septotomy done with sphinterotome in MPD CBD cannulated after the precut Pancreas duct cannulation was attempted using the sphinctertome with guidewire. Deep cannulation with the sphincterotome was successfully achieved. A single stone was seen in the common bile duct. Using a stone extraction balloon the bile duct was swept twice. A single stone was removed from the bile duct successfully. Pst ES bleeding noted .stopped after epinephrine injection. ADVERSE EVENT: There were no complications. IMPRESSIONS: 1. Normal appearing ampulla 2. Mildly dilated CBD 3. Pst ES bleeding noted .stopped after epinephrine injection RECOMMENDATIONS: Admit to hospital REPEAT EXAM: NONE Migel Teague MD eSigned: Migel Teague MD 06/19/2018 6:57 PM cc: PATIENT NAME: Araceli Bellamy MR#: [id number]
[2018-06-19] MEDS ORDERED: *morphine SULFATE 4 MG/ML PERIprocedure ONLY ONE ×2 (19:21→19:33)
--- NOTE | 2018-06-19 19:27 | FL ---
EXAM DATE: 06/19/2018 7:08 PM EST AGE/SEX: 58 years / Female INDICATIONS: Evaluate for obstruction,sphincterotomy,stone removal. CLINICAL DATA: This is the patient's subsequent encounter. Patient reports that signs and symptoms h ave been present for 1 day and indicates a pain score of Nonresponsive. MEDICAL/SURGICAL HISTORY: None. None. COMPARISON: No prior exams available for comparison. FINDINGS: An ERCP was performed by the ordering physician. The images demonstrate cannulation of the sphincter and passage of a wire and contrast into a mildly distended common bile duct. There does appear to be a filling defect on the initial images in the lower duct, not seen on the subsequent images. CONCLUSION: Distal common bile duct stone appears to have been removed. Electronically signed by: Gregg Aragon MD 06/19/2018 7:26 PM EST
[2018-06-19] MEDS: Pantoprazole Inj 40 MG Vial IV.PUSH SCH (19:40)
[2018-06-19] MEDS ORDERED: *morphine SULFATE 10 MG/ML PERIprocedure ONLY ONE (19:47)
[2018-06-19] MEDS ORDERED: Metoprolol Inj 5 MG/5 ML Vial ONE (20:17)
[2018-06-19] MEDS ORDERED: hydrALAZINE HCl Inj 20 MG/ML Vial IV.PUSH PRN (20:30)
[2018-06-19] MEDS ORDERED: Metoprolol Inj 5 MG/5 ML Vial IV.PUSH ONE (20:30)
--- NOTE | 2018-06-19 21:59 | P.CONGS ---
[facility] Gen Surgery Consult Note Consult date: 06/19/18 Narrative: 58 yo F with 5 day h/o epigastric abdominal pain associated with nausea. She was noted to have elevated LFTs in obstructive pattern. Gallbladder u/s revealed possible multiple polyps. CT a/p showed gallstones, 9 mm common duct, and stone in distal common duct. MRCP confirmed choledocholithiasis and patient is planned to undergo ERCP tonight. Review of Systems All other systems reviewed negative except as stated in [facility] - History History Provided By: Patient - Medical History Medical History: Medical History (Last Reviewed 06/18/18 @ 20:53 by Breanna Martinez RN) History of anxiety - Surgical History Surgical History: Surgical History (Last Reviewed 06/18/18 @ 20:53 by Breanna Martinez RN) History of heart surgery - Family History Family History: Family History (Last Updated 06/18/18 @ 20:53 by Breanna Martinez RN) Other No pertinent family history - Tobacco History Second Hand Smoke Exposure: No Tobacco Use In Past 30 Days: No Smoking Status: Former smoker - Alcohol History How Often Do You Have a Drink Containing Alcohol: 2 to 4 times a month - Substance Use History Substance History: No History of Abuse - Immunization History Tetanus Immunization: >5 Years Hx Influenza Vaccine This Season: No Medications and Allergies Active Medications: Active Medications Acetaminophen (Tylenol) 650 mg PO Q4H PRN PRN Reason: Temp > 100.4 Hydrocodone Bitart/Acetaminophen ([place] 5/325) 1 tab PO Q4H PRN PRN Reason: pain 1-5 Last Admin: 06/19/18 13:42 Dose: 1 tab Al Hydroxide/Mg Hydroxide (Milk Of Arnel Foster) 30 ml PO Q12H PRN PRN Reason: Mild Constipation Enalaprilat (Vasotec Inj) 1.25 mg IV.PUSH Q6H PRN PRN Reason: SYS BP GREATER THAN 160 MMHG Last Admin: 06/19/18 19:35 Dose: 1.25 mg Hydralazine HCl (Apresoline Inj) 10 mg IV.PUSH ONCE PRN PRN Reason: SEE LABEL COMMENTS Stop: 06/19/18 22:00 Hydromorphone HCl (Dilaudid Pf Inj) 0.5 mg IV.PUSH Q4H PRN PRN Reason: pain 6 - 10 Last Admin: 06/19/18 00:27 Dose: 0.5 mg Potassium Chloride/Sodium Chloride (Potassium Chlor 20 Meq/Nacl 0.45% Inj) 1, 000 mls @ 84 mls/hr IV.CONT .[id number] [facility] Last Admin: 06/19/18 21:39 Dose: Not Given Lactated Ringer's (Lr 1000 Ml Inj) 1,000 mls @ 30 mls/hr IV.CONT .Q24H ONE Stop: 06/20/18 02:14 Miscellaneous Information ([facility]) 1 each OTHER UNSCH PRN PRN Reason: SEE LABEL COMMENTS Stop: 06/20/18 18:55 Ondansetron HCl (Zofran Inj) 4 mg IV.PUSH Q6H PRN PRN Reason: NAUSEA OR VOMITING Pantoprazole Sodium (Protonix Inj) 40 mg IV.PUSH Q24H [facility] Last Admin: 06/19/18 19:40 Dose: 40 mg Senna/Docusate Sodium (Suzie-Colace) 1 tab PO BID [facility] Last Admin: 06/19/18 21:39 Dose: Not Given Sodium Chloride (Ns Flush) 2 ml IV.FLUSH PRN PRN PRN Reason: FLUSH AFTER USING IV ACCESS Allergies Allergy/AdvReac Type Severity Reaction Status Date / Time No Known Allergies Allergy Verified 06/18/18 11:29 Home Medications Medication Instructions Recorded Confirmed Type Multi Vitamin 06/18/18 History calcium carbonate-vitamin D3 1 tab PO DAILY 06/18/18 06/18/18 History [Calcium 600 + D(3)] pantoprazole [Protonix] 40 mg PO DAILY 06/18/18 06/18/18 History Exam Vital signs: Vital Signs 06/19/18 00:00 06/19/18 05:10 06/19/18 08:00 Temperature 97.2 F L 97.7 F 98.3 F Pulse Rate 61 71 78 Respiratory Rate 18 18 20 Blood Pressure 161/89 H 184/95 H 190/88 H Pulse Oximetry 96 98 99 06/19/18 09:00 06/19/18 12:00 06/19/18 12:30 Temperature 98.6 F Pulse Rate 78 74 Respiratory Rate 20 Blood Pressure 182/90 H 181/91 H 166/90 H Pulse Oximetry 99 06/19/18 16:00 06/19/18 18:56 06/19/18 19:00 Temperature 98.0 F 97.7 F Pulse Rate 67 81 72 Respiratory Rate 20 18 20 Blood Pressure 154/89 H 176/77 H 175/97 H Pulse Oximetry 98 100 100 06/19/18 19:15 06/19/18 19:30 06/19/18 19:32 Temperature Pulse Rate 74 72 Respiratory Rate 16 15 Blood Pressure 179/99 H 193/97 H Pulse Oximetry 99 100 100 06/19/18 19:38 06/19/18 19:41 06/19/18 19:45 Temperature Pulse Rate 72 76 Respiratory Rate 11 L 11 L 13 Blood Pressure 188/99 H 186/91 H Pulse Oximetry 99 99 06/19/18 20:00 06/19/18 20:15 06/19/18 20:27 Temperature 97.5 F L Pulse Rate 72 78 Respiratory Rate 16 18 21 Blood Pressure 187/95 H 191/90 H Pulse Oximetry 97 98 06/19/18 20:28 06/19/18 20:30 06/19/18 20:50 Temperature 97.5 F L Pulse Rate 61 54 L Respiratory Rate 20 18 11 L Blood Pressure 181/97 H 164/92 H Pulse Oximetry 96 97 06/19/18 20:51 06/19/18 21:48 Temperature 97.2 F L Pulse Rate 65 Respiratory Rate 16 Blood Pressure 193/101 H Pulse Oximetry 99 97 Intake & Output 06/19/18 06/19/18 06/20/18 06:59 18:59 06:59 Intake Total 1120 / 1120 1100 / 1100 600 / 600 Output Total 75 / 75 Balance 1120 / 1120 1100 / 1100 525 / 525 Weight 63.8 kg Intake: IV 1000 / 1000 100 / 100 Potassium Chlor 20 mEq/NACL 0. 1000 / 1000 45% Inj 1,000 ML @ 84 mls/hr IV .CONT .[id number] [facility] Rx#: [id number] Unasyn Inj 3 GM In NS Inj 100 100 / 100 ML @ 200 mls/hr IV.SIG ONCE ONE Rx#:[id number] Oral 120 / 120 0 / 0 0 / 0 Anesthesia Amount 1000 / 1000 600 / 600 Output: Urine 0 / 0 Emesis 75 / 75 Other: # Voids 2 7 Date of Last Bowel Movement 06/18/18 06/18/18 # Bowel Movements 0 # Emeses 1 Weight On Admission 63.8 kg Narrative: GENERAL: Awake and alert. No acute distress. Cooperative. HEAD: Normocephalic. Atraumatic. EYES: Pupils equal round and reactive to light bilaterally. No scleral icterus. ENT: Moist oral mucosa. NECK: Trachea midline. CHEST: Lungs clear to auscultation bilaterally with no wheezing or rhonchi. No respiratory distress. CARDIOVASCULAR: Regular rate and rhythm. ABDOMEN: Soft nondistended. Nontender to palpation. Negative Reed sign. EXTREMITIES: No cyanosis or edema. SKIN: Warm, dry, nonjaundiced. Results - Labs 06/19/18 04:35 06/19/18 04:35 Laboratory Results - last 24 hr 06/19/18 06/19/18 04:35 04:35 WBC 4.8 RBC 4.39 Hgb 14.3 Hct 41.5 MCV 94.6 MCH 32.5 MCHC 34.3 RDW 12.6 Plt Count 219 MPV 9.2 Neut % (Auto) 55.6 Lymph % (Auto) 32.8 [place] % (Auto) 8.2 H Eos % (Auto) 2.7 Baso % (Auto) 0.7 Neut # (Auto) 2.7 Lymph # (Auto) 1.6 [place] # (Auto) 0.4 Eos # (Auto) 0.1 Baso # (Auto) 0.0 WBC Differential . Differential Comment Auto diff final Sodium 141 Potassium 3.7 Chloride 107 Carbon Dioxide 25.5 Anion Gap 9 BUN 15 Creatinine 0.71 Estimated GFR 85 L Random Glucose 95 Calcium 8.8 Total Bilirubin 1.4 H AST 253 H ALT 739 H Alkaline Phosphatase 215 H Total Protein 7.0 D Albumin 3.8 Lipase 308 - Imaging Imaging: ITS Impressions Chest X-Ray 06/18/18 00:00 CONCLUSION: No evidence of acute cardiopulmonary disease. Gallbladder Ultrasound 06/18/18 11:48 CONCLUSION: 1. Probable multiple gallbladder wall polyps. Abdomen/Pelvis CT 06/18/18 13:44 CONCLUSION: 1. Choledocholithiasis with 4 mm calculus identified in the distal duct. Intrahepatic and extra hepatic biliary ductal dilatation diffusely. 2. Cholelithiasis. No pericholecystic inflammatory changes. GI Procedure 06/19/18 00:00 CONCLUSION: Distal common bile duct stone appears to have been removed. Cholangiopancreatography MRI 06/19/18 08:00 CONCLUSION: 1. Distal common bile duct stone with mild dilatation of the common bile duct measuring 9 mm in diameter. 2. No evidence of significant intrahepatic biliary duct dilatation. 3. No evidence of significant pericholecystic inflammatory disease. CT scan - abdomen: report reviewed CT scan - pelvis: report reviewed US - abdomen: report reviewed Assessment and Plan - Assessment (1) Choledocholithiasis Code(s): K80.50 - Calculus of bile duct without cholangitis or cholecystitis without obstruction Status: Acute - Plan Patient is a 58-year-old female with 5 days of abdominal pain who has an evaluation revealing choledocholithiasis. She is to undergo ERCP tonight. She does not appear acutely ill at this time. She will benefit from cholecystectomy during this hospitalization or within the next few weeks as an outpatient. Will see her in the morning and make a plan for timing of surgical intervention. Discussed in detail with the patient and her family and they understand.
[2018-06-20 05:39] LABS: Baso % (Auto) 0.3 % (0.0-2.0); Eos % (Auto) 0.1 % (0.0-4.0); Hematocrit 40.8 % (35.0-46.0); Hemoglobin 14.4 gm/dL (11.6-15.3); Lymph % (Auto) 12.3 % (9.0-44.0); Mean Corpuscular HGB Conc 35.3 % (32.0-36.0); Mean Corpuscular Hemoglobin 33.3 pg (27.0-34.0); Mean Corpuscular Volume 94.4 fL (80.0-100.0); Mean Platelet Volume 9.7 fL (7.0-11.0); Mono # (Auto) 0.4 th/mm3 (0.0-0.9); Mono % (Auto) 4.8 % (0.0-8.0); Neut # (Auto) 6.8 th/mm3 (1.8-7.7); Neut % (Auto) 82.5 % (16.0-70.0); Platelet Count 249 th/mm3 (150-450); Red Blood Count 4.32 mil/mm3 (4.00-5.30); Red Cell Distribution Width 12.7 % (11.6-17.2); White Blood Count 8.3 th/mm3 (4.0-11.0)
[2018-06-20 05:55] LABS: Albumin 3.5 g/dL (3.4-5.0); Anion Gap 15 meq/L (5-15); Aspartate Aminotransferase 85 U/L (15-37); Blood Urea Nitrogen 15 mg/dL (7-18); Calcium 8.7 mg/dL (8.5-10.1); Carbon Dioxide 22.4 meq/L (21.0-32.0); Chloride 103 meq/L (98-107); Glomerular Filtration Rate Greater Than 89 mL/min (>89); Glucose,Random 80 mg/dL (74-106); Potassium 4.1 meq/L (3.5-5.1); Sodium 140 meq/L (136-145)
[2018-06-20 05:57] LABS: Alanine Aminotransferase 479 U/L (10-53)
[2018-06-20 05:59] LABS: Alkaline Phosphatase 189 U/L (45-117); Total Protein 6.7 g/dL (6.4-8.2)
[2018-06-20] MEDS: KCL 20 mEq/NACL 0.45% Inj 1,000 ML IV.CONT SCH (06:09)
[2018-06-20] MEDS: Senna/Docusate Sodium 8.6/50 MG Tablet PO SCH (08:53)
[2018-06-20 08:59] VITALS: RESP 16
--- NOTE | 2018-06-20 11:21 | P.PNGS ---
Subjective Interval history: Mild abdominal discomfort. ERCP yesterday with sphincterotomy and stone extraction. Physical Exam Vital signs: Vital Signs 06/19/18 12:00 06/19/18 12:30 06/19/18 16:00 Temperature 98.6 F 98.0 F Pulse Rate 74 67 Respiratory Rate 20 20 Blood Pressure 181/91 H 166/90 H 154/89 H Pulse Oximetry 99 98 06/19/18 18:56 06/19/18 19:00 06/19/18 19:15 Temperature 97.7 F Pulse Rate 81 72 74 Respiratory Rate 18 20 16 Blood Pressure 176/77 H 175/97 H 179/99 H Pulse Oximetry 100 100 99 06/19/18 19:30 06/19/18 19:32 06/19/18 19:38 Temperature Pulse Rate 72 72 Respiratory Rate 15 11 L Blood Pressure 193/97 H 188/99 H Pulse Oximetry 100 100 99 06/19/18 19:41 06/19/18 19:45 06/19/18 20:00 Temperature 97.5 F L Pulse Rate 76 72 Respiratory Rate 11 L 13 16 Blood Pressure 186/91 H 187/95 H Pulse Oximetry 99 97 06/19/18 20:15 06/19/18 20:27 06/19/18 20:28 Temperature Pulse Rate 78 Respiratory Rate 18 21 20 Blood Pressure 191/90 H Pulse Oximetry 98 06/19/18 20:30 06/19/18 20:50 06/19/18 20:51 Temperature 97.5 F L Pulse Rate 61 54 L Respiratory Rate 18 11 L Blood Pressure 181/97 H 164/92 H Pulse Oximetry 96 97 99 06/19/18 21:48 06/20/18 00:00 06/20/18 03:45 Temperature 97.2 F L 97.9 F 97.7 F Pulse Rate 65 59 L 78 Respiratory Rate 16 18 18 Blood Pressure 193/101 H 147/76 H 112/70 Pulse Oximetry 97 99 97 06/20/18 08:35 Temperature 99 F Pulse Rate 79 Respiratory Rate 16 Blood Pressure 153/76 H Pulse Oximetry 97 Intake & Output 06/19/18 06/20/18 06/20/18 18:59 06:59 18:59 Intake Total 1100 / 1100 2320 / 2320 Output Total 75 / 75 Balance 1100 / 1100 2245 / 2245 Weight 64.6 kg Intake: IV 100 / 100 1000 / 1000 Potassium Chlor 20 mEq/NACL 0. 1000 / 1000 45% Inj 1,000 ML @ 84 mls/hr IV .CONT .[id number] [facility] Rx#: [id number] Unasyn Inj 3 GM In NS Inj 100 100 / 100 ML @ 200 mls/hr IV.SIG ONCE ONE Rx#:[id number] Oral 0 / 0 720 / 720 Anesthesia Amount 1000 / 1000 600 / 600 Output: Urine 0 / 0 Emesis 75 / 75 Other: # Voids 7 4 Date of Last Bowel Movement 06/18/18 06/18/18 06/18/18 # Bowel Movements 0 # Emeses 1 Narrative: NAD ABD soft, min ttp Results - Labs 06/20/18 03:53 06/20/18 03:53 Laboratory Results - last 24 hr 06/20/18 06/20/18 03:53 03:53 WBC 8.3 D RBC 4.32 Hgb 14.4 Hct 40.8 MCV 94.4 MCH 33.3 MCHC 35.3 RDW 12.7 Plt Count 249 MPV 9.7 Neut % (Auto) 82.5 H Lymph % (Auto) 12.3 [place] % (Auto) 4.8 Eos % (Auto) 0.1 Baso % (Auto) 0.3 Neut # (Auto) 6.8 Lymph # (Auto) 1.0 [place] # (Auto) 0.4 Eos # (Auto) 0.0 Baso # (Auto) 0.0 WBC Differential . Differential Comment Auto diff final Sodium 140 Potassium 4.1 Chloride 103 Carbon Dioxide 22.4 Anion Gap 15 BUN 15 Creatinine 0.61 Estimated GFR Greater than 89 Random Glucose 80 Calcium 8.7 Total Bilirubin 1.1 H AST 85 H ALT 479 H Alkaline Phosphatase 189 H Total Protein 6.7 Albumin 3.5 - Imaging Imaging: ITS Impressions Chest X-Ray 06/18/18 00:00 CONCLUSION: No evidence of acute cardiopulmonary disease. Gallbladder Ultrasound 06/18/18 11:48 CONCLUSION: 1. Probable multiple gallbladder wall polyps. Abdomen/Pelvis CT 06/18/18 13:44 CONCLUSION: 1. Choledocholithiasis with 4 mm calculus identified in the distal duct. Intrahepatic and extra hepatic biliary ductal dilatation diffusely. 2. Cholelithiasis. No pericholecystic inflammatory changes. GI Procedure 06/19/18 00:00 CONCLUSION: Distal common bile duct stone appears to have been removed. Cholangiopancreatography MRI 06/19/18 08:00 CONCLUSION: 1. Distal common bile duct stone with mild dilatation of the common bile duct measuring 9 mm in diameter. 2. No evidence of significant intrahepatic biliary duct dilatation. 3. No evidence of significant pericholecystic inflammatory disease. Assessment and Plan - Assessment (1) Choledocholithiasis Code(s): K80.50 - Calculus of bile duct without cholangitis or cholecystitis without obstruction Status: Acute - Plan S/p ERCP for choledocholithiasis. She can f/u with me this week to schedule outpatient cholecystectomy in the next few weeks. Needs to be on low fat diet at home. Discussed in detail with she and her family and they understand.
[2018-06-20 12:09] VITALS: BP 155/84; PULSE 75; TEMP 98.4; O2SAT 98
--- NOTE | 2018-06-20 12:22 | P.DS ---
DS: Providers Date of admission: 06/18/18 17:40 Primary care physician: Reina Thibodeaux MD Consults: 06/18/18 17:48 Consult to Gastroenterology Routine Consulting Provider: Elizabeth Tolliver Ragman:: Elizabeth Tolliver Reason for Consultation: choledocholithiasis Notified:: Service Spoke with:: SPENCER Date Notified:: 06/18/18 Time Notified:: 17:57 Comments:: PT17 Ordering Provider: CHRIS 06/19/18 14:55 Consult to General Surgery Routine Consulting Provider: Deepak Bearden Reason for Consultation: gallstones , ercp scheduled today Notified:: Service Spoke with:: CLOTILDE Date Notified:: 06/19/18 Time Notified:: 15:16 Ordering Provider: OSMAN 06/19/18 15:51 Consult to General Surgery Routine Consulting Provider: Deepak Bearden Reason for Consultation: Choledocholithiasis Notified:: Service Spoke with:: KAT Date Notified:: 06/19/18 Time Notified:: 16:02 Ordering Provider: MIS DS: Diagnosis Discharge Diagnosis (1) Choledocholithiasis: Status: Acute DS: Summary This is a 58-year-old female patient with a past medical history which includes whitecoat hypertension, ostium secundum atrial septal defect repaired at age 24 , hyperlipidemia and insomnia. Patient reports that for the past 5 days she has been having intermittent epigastric pain. Pain can be quite severe at times. She is not having it right now. She went to urgent care center 4 days ago and was diagnosed with gastric reflux and was started on Protonix. She says she has not had any improvement with the Protonix. She has never had an endoscopy she has no history of abdominal surgery. Patient reports that she has been doing weight watchers for the past year and a half and has lost over 30 pounds. She does sometimes taste her food when she is having the pain. She has not noted particular foods that make it worse. Patient denies fevers chills nausea vomiting chest pain or shortness of breath. Choledocholithiasis On admission total bilirubin 3.2, AST 524, ALT 1009, alkaline phosphatase 222 (06/19/18) total bilirubin bilirubin 1.4, AST 253, ALT 739, alkaline phosphatase 215 (06/20/18) total bilirubin bilirubin 1.1, AST 85, ALT 479, alkaline phosphatase 189 Chest X-Ray 06/18/18- No evidence of acute cardiopulmonary disease. Gallbladder Ultrasound 06/18/18 - Probable multiple gallbladder wall polyps. Abdomen/Pelvis CT 06/18/18 1. Choledocholithiasis with 4 mm calculus identified in the distal duct. Intrahepatic and extra hepatic biliary ductal dilatation diffusely. 2. Cholelithiasis. No pericholecystic inflammatory changes. MRCP Cholangiopancreatography MRI 06/19/18 1. Distal common bile duct stone with mild dilatation of the common bile duct measuring 9 mm in diameter. 2. No evidence of significant intrahepatic biliary duct dilatation. 3. No evidence of significant pericholecystic inflammatory disease. Zosyn x1 given in emergency department 06/18/2018 GI consultation, appreciate input plan for ERCP with stent and sphincterotomy S/P ERCP with stone extraction with Dr. Teague 06/19/18 1. Normal appearing ampulla 2. Mildly dilated CBD 3. Pst ES bleeding noted .stopped after epinephrine injection Consult to general surgery, cleared for DC per general surgery plan to follow up as outpatient to plan cholecyectomy patient feeling well asking to go home today Plan to DC later today if she is able to tolerate low fat diet Hyperlipidemia Not on medication follows a low-fat low-cholesterol diet The exam, history, and the medical decision-making described in the above note were completed with the assistance of the mid-level provider. I reviewed and agree with the findings presented. I attest that I had a [id number] encounter with the patient on the same day, and personally performed and documented my assessment and findings in the medical record. Patient examined. Assessment and plan formulated with María Elena Herrera PA-C. I agree with the above. Pt interviewed and examined on the day of discharge. Pt tolerating PO intake and eager for discharge to home. Pt denies n/v/d or abdominal pain. Cased d/w Dr. Bearden (06/20/18). Pt will f/u with Dr. Bearden in 1 week. [employer] Prescription Drug Monitoring Database has been queried and verified prior to prescribing the controlled substance. Acute pain exception. This patient has normal, predicted, physiological, and time limited response to an adverse mechanical stimulus associated with surgery, trauma, or acute illness as described in my notes. There is a lack of alternative treatment options other than to include the prescribed narcotic treatment for this condition. Time Spent with Patient Total time spent providing and/or coordinating discharge services: Quality: VTE Deep Vein Thrombosis/Pulmonary Embolism Present on Admission: No Exam Narrative Exam Narrative: GENERAL: This is a well-nourished, well-developed patient, in no apparent distress. CARDIOVASCULAR: Regular rate and rhythm RESPIRATORY: Clear to auscultation. Breath sounds equal bilaterally. GASTROINTESTINAL: Abdomen soft, non-tender, nondistended. Normal active bowel sounds MUSCULOSKELETAL: Extremities without clubbing, cyanosis, or edema. NEURO: Alert & Oriented. Moves all ext x4 DS: Data Labs on day of discharge: Labs from last 24 hours 06/20/18 06/20/18 03:53 03:53 WBC 8.3 D RBC 4.32 Hgb 14.4 Hct 40.8 MCV 94.4 MCH 33.3 MCHC 35.3 RDW 12.7 Plt Count 249 MPV 9.7 Neut % (Auto) 82.5 H Lymph % (Auto) 12.3 [place] % (Auto) 4.8 Eos % (Auto) 0.1 Baso % (Auto) 0.3 Neut # (Auto) 6.8 Lymph # (Auto) 1.0 [place] # (Auto) 0.4 Eos # (Auto) 0.0 Baso # (Auto) 0.0 WBC Differential . Differential Comment Auto diff final Sodium 140 Potassium 4.1 Chloride 103 Carbon Dioxide 22.4 Anion Gap 15 BUN 15 Creatinine 0.61 Estimated GFR Greater than 89 Random Glucose 80 Calcium 8.7 Total Bilirubin 1.1 H AST 85 H ALT 479 H Alkaline Phosphatase 189 H Total Protein 6.7 Albumin 3.5 Impressions Chest X-Ray 06/18/18 00:00 CONCLUSION: No evidence of acute cardiopulmonary disease. Gallbladder Ultrasound 06/18/18 11:48 CONCLUSION: 1. Probable multiple gallbladder wall polyps. Abdomen/Pelvis CT 06/18/18 13:44 CONCLUSION: 1. Choledocholithiasis with 4 mm calculus identified in the distal duct. Intrahepatic and extra hepatic biliary ductal dilatation diffusely. 2. Cholelithiasis. No pericholecystic inflammatory changes. GI Procedure 06/19/18 00:00 CONCLUSION: Distal common bile duct stone appears to have been removed. Cholangiopancreatography MRI 06/19/18 08:00 CONCLUSION: 1. Distal common bile duct stone with mild dilatation of the common bile duct measuring 9 mm in diameter. 2. No evidence of significant intrahepatic biliary duct dilatation. 3. No evidence of significant pericholecystic inflammatory disease. Discharge Plan Discharge Disposition Patient Disposition: Discharge Home Discharge Condition Condition: Stable Discharge Order Discharge Orders: Discharge Order (Routine); Ordered 06/20/18 Ordered By: María Elena Herrera Discharge Details Anticipated Discharge Date: 06/20/18 Discharge Comment: Please dc after tolerates cardiac diet Physicians Team ED Provider: Abdoul Melendez Primary Care Provider: Reina Thibodeaux Attending Provider: Carlos Griffin Other Providers: Elizabeth Tolliver ; Deepak Bearden Rxs /Orders / Referrals /Forms Prescriptions: New ondansetron HCl [Zofran] 4 mg tablet 4 mg PO Q6-8H PRN (Reason: nausea and vomiting) Qty: 10 RF: 0 hydrocodone-acetaminophen [[place]] 5-325 mg tablet 1 tab PO Q6H PRN (Reason: pain) Qty: 7 RF: 0 Continue calcium carbonate-vitamin D3 [Calcium 600 + D(3)] 600 mg(1,500mg) -400 unit Tablet 1 tab PO DAILY RF: 0 Multi Vitamin RF: 0 Discontinued pantoprazole [Protonix] 40 mg Tablet,Delayed Release (Dr/Ec) 40 mg PO DAILY RF: 0 Referrals: Elizabeth Tolliver MD [Physician] - See Instructions (follow up in 1-2 weeks) eDepak Bearden MD [GENERAL SURGERY] - See Instructions (follow up within 1 week) Reina Thibodeaux MD [Primary Care Provider] - See Instructions (follow up in 1 week) Discharge Instructions Patient Printed Instructions: Gallstones (GEN), ERCP (Endoscopic Retrograde Cholangiopancreatography) (DC) Additional Instructions: Make or keep your follow up appointments as directed. Take medications as directed. Post Discharge Care Plan Care Plan Goals: Your Health Problems: Goals to Promote Your Health: * To prevent worsening of your condition * To maintain your health at the optimal level Directions to Meet Your Goals: * Take your medications as prescribed * Follow your dietary instruction * Follow activity as directed * Keep your appointments as scheduled * Take your immunizations and boosters as scheduled * If your symptoms worsen call your PCP * If no PCP go to Urgent Care or Emergency Room Smoking is dangerous to your health. Avoid second hand smoke. You may reach the 24-hour crisis hotline for domestic abuse at . Status ED Status: Left Department
--- NOTE | 2018-06-20 13:12 | P.PNGI ---
Subjective Interval history: Minimal epigastric discomfort Physical Exam Vital signs: Vital Signs 06/19/18 16:00 06/19/18 18:56 06/19/18 19:00 Temperature 98.0 F 97.7 F Pulse Rate 67 81 72 Respiratory Rate 20 18 20 Blood Pressure 154/89 H 176/77 H 175/97 H Pulse Oximetry 98 100 100 06/19/18 19:15 06/19/18 19:30 06/19/18 19:32 Temperature Pulse Rate 74 72 Respiratory Rate 16 15 Blood Pressure 179/99 H 193/97 H Pulse Oximetry 99 100 100 06/19/18 19:38 06/19/18 19:41 06/19/18 19:45 Temperature Pulse Rate 72 76 Respiratory Rate 11 L 11 L 13 Blood Pressure 188/99 H 186/91 H Pulse Oximetry 99 99 06/19/18 20:00 06/19/18 20:15 06/19/18 20:27 Temperature 97.5 F L Pulse Rate 72 78 Respiratory Rate 16 18 21 Blood Pressure 187/95 H 191/90 H Pulse Oximetry 97 98 06/19/18 20:28 06/19/18 20:30 06/19/18 20:50 Temperature 97.5 F L Pulse Rate 61 54 L Respiratory Rate 20 18 11 L Blood Pressure 181/97 H 164/92 H Pulse Oximetry 96 97 06/19/18 20:51 06/19/18 21:48 06/20/18 00:00 Temperature 97.2 F L 97.9 F Pulse Rate 65 59 L Respiratory Rate 16 18 Blood Pressure 193/101 H 147/76 H Pulse Oximetry 99 97 99 06/20/18 03:45 06/20/18 08:35 06/20/18 11:20 Temperature 97.7 F 99 F 98.4 F Pulse Rate 78 79 75 Respiratory Rate 18 16 16 Blood Pressure 112/70 153/76 H 155/84 H Pulse Oximetry 97 97 98 Intake & Output 06/19/18 06/20/18 06/20/18 18:59 06:59 18:59 Intake Total 1100 / 1100 2320 / 2320 Output Total 75 / 75 Balance 1100 / 1100 2245 / 2245 Weight 64.6 kg Intake: IV 100 / 100 1000 / 1000 Potassium Chlor 20 mEq/NACL 0. 1000 / 1000 45% Inj 1,000 ML @ 84 mls/hr IV .CONT .[id number] [facility] Rx#: [id number] Unasyn Inj 3 GM In NS Inj 100 100 / 100 ML @ 200 mls/hr IV.SIG ONCE ONE Rx#:[id number] Oral 0 / 0 720 / 720 Anesthesia Amount 1000 / 1000 600 / 600 Output: Urine 0 / 0 Emesis 75 / 75 Other: # Voids 7 4 Date of Last Bowel Movement 06/18/18 06/18/18 06/18/18 # Bowel Movements 0 # Emeses 1 - Constitutional no acute distress - Routine HEENT Exam Head: Present: normocephalic Eye: Present: EOMI - Routine Respiratory Exam Present: CTA bilaterally - Routine Cardiovascular Exam Present: RRR - Routine Abdominal Exam Present: soft, tenderness Results - Labs CBC & Chem 7: 06/20/18 03:53 06/20/18 03:53 Laboratory Results - last 24 hr 06/20/18 06/20/18 03:53 03:53 WBC 8.3 D RBC 4.32 Hgb 14.4 Hct 40.8 MCV 94.4 MCH 33.3 MCHC 35.3 RDW 12.7 Plt Count 249 MPV 9.7 Neut % (Auto) 82.5 H Lymph % (Auto) 12.3 [place] % (Auto) 4.8 Eos % (Auto) 0.1 Baso % (Auto) 0.3 Neut # (Auto) 6.8 Lymph # (Auto) 1.0 [place] # (Auto) 0.4 Eos # (Auto) 0.0 Baso # (Auto) 0.0 WBC Differential . Differential Comment Auto diff final Sodium 140 Potassium 4.1 Chloride 103 Carbon Dioxide 22.4 Anion Gap 15 BUN 15 Creatinine 0.61 Estimated GFR Greater than 89 Random Glucose 80 Calcium 8.7 Total Bilirubin 1.1 H AST 85 H ALT 479 H Alkaline Phosphatase 189 H Total Protein 6.7 Albumin 3.5 - Imaging Impressions GI Procedure 06/19/18 00:00 CONCLUSION: Distal common bile duct stone appears to have been removed. Assessment and Plan (1) Choledocholithiasis Status: Acute Code(s): K80.50 - Calculus of bile duct without cholangitis or cholecystitis without obstruction - Plan Seen and examined, minimal epigastric discomfort after eating. S/p ercp with sphincterotomy. Outpt cholecystectomy. GI will sign off. Thank you
--- NOTE | 2018-06-20 13:13 | P.PNGI ---
Subjective Interval history: No bleeding Physical Exam Vital signs: Vital Signs 06/19/18 16:00 06/19/18 18:56 06/19/18 19:00 Temperature 98.0 F 97.7 F Pulse Rate 67 81 72 Respiratory Rate 20 18 20 Blood Pressure 154/89 H 176/77 H 175/97 H Pulse Oximetry 98 100 100 06/19/18 19:15 06/19/18 19:30 06/19/18 19:32 Temperature Pulse Rate 74 72 Respiratory Rate 16 15 Blood Pressure 179/99 H 193/97 H Pulse Oximetry 99 100 100 06/19/18 19:38 06/19/18 19:41 06/19/18 19:45 Temperature Pulse Rate 72 76 Respiratory Rate 11 L 11 L 13 Blood Pressure 188/99 H 186/91 H Pulse Oximetry 99 99 06/19/18 20:00 06/19/18 20:15 06/19/18 20:27 Temperature 97.5 F L Pulse Rate 72 78 Respiratory Rate 16 18 21 Blood Pressure 187/95 H 191/90 H Pulse Oximetry 97 98 06/19/18 20:28 06/19/18 20:30 06/19/18 20:50 Temperature 97.5 F L Pulse Rate 61 54 L Respiratory Rate 20 18 11 L Blood Pressure 181/97 H 164/92 H Pulse Oximetry 96 97 06/19/18 20:51 06/19/18 21:48 06/20/18 00:00 Temperature 97.2 F L 97.9 F Pulse Rate 65 59 L Respiratory Rate 16 18 Blood Pressure 193/101 H 147/76 H Pulse Oximetry 99 97 99 06/20/18 03:45 06/20/18 08:35 06/20/18 11:20 Temperature 97.7 F 99 F 98.4 F Pulse Rate 78 79 75 Respiratory Rate 18 16 16 Blood Pressure 112/70 153/76 H 155/84 H Pulse Oximetry 97 97 98 Intake & Output 06/19/18 06/20/18 06/20/18 18:59 06:59 18:59 Intake Total 1100 / 1100 2320 / 2320 Output Total 75 / 75 Balance 1100 / 1100 2245 / 2245 Weight 64.6 kg Intake: IV 100 / 100 1000 / 1000 Potassium Chlor 20 mEq/NACL 0. 1000 / 1000 45% Inj 1,000 ML @ 84 mls/hr IV .CONT .[id number] [facility] Rx#: [id number] Unasyn Inj 3 GM In NS Inj 100 100 / 100 ML @ 200 mls/hr IV.SIG ONCE ONE Rx#:[id number] Oral 0 / 0 720 / 720 Anesthesia Amount 1000 / 1000 600 / 600 Output: Urine 0 / 0 Emesis 75 / 75 Other: # Voids 7 4 Date of Last Bowel Movement 06/18/18 06/18/18 06/18/18 # Bowel Movements 0 # Emeses 1 - Constitutional no acute distress - Routine HEENT Exam Head: Present: normocephalic Eye: Present: EOMI - Routine Respiratory Exam Present: CTA bilaterally - Routine Cardiovascular Exam Present: RRR - Routine Abdominal Exam Present: soft, normoactive bowel sounds Results - Labs CBC & Chem 7: 06/20/18 03:53 06/20/18 03:53 Laboratory Results - last 24 hr 06/20/18 06/20/18 03:53 03:53 WBC 8.3 D RBC 4.32 Hgb 14.4 Hct 40.8 MCV 94.4 MCH 33.3 MCHC 35.3 RDW 12.7 Plt Count 249 MPV 9.7 Neut % (Auto) 82.5 H Lymph % (Auto) 12.3 [place] % (Auto) 4.8 Eos % (Auto) 0.1 Baso % (Auto) 0.3 Neut # (Auto) 6.8 Lymph # (Auto) 1.0 [place] # (Auto) 0.4 Eos # (Auto) 0.0 Baso # (Auto) 0.0 WBC Differential . Differential Comment Auto diff final Sodium 140 Potassium 4.1 Chloride 103 Carbon Dioxide 22.4 Anion Gap 15 BUN 15 Creatinine 0.61 Estimated GFR Greater than 89 Random Glucose 80 Calcium 8.7 Total Bilirubin 1.1 H AST 85 H ALT 479 H Alkaline Phosphatase 189 H Total Protein 6.7 Albumin 3.5 - Imaging Impressions GI Procedure 06/19/18 00:00 CONCLUSION: Distal common bile duct stone appears to have been removed. Assessment and Plan (1) Choledocholithiasis Status: Acute Code(s): K80.50 - Calculus of bile duct without cholangitis or cholecystitis without obstruction - Plan Seen and examined, no active bleeding reported. [facility] for liver cirrhosis.
== END 2018-06-20 14:50 | disposition home or self-care (01) ==
LOC: PHED 11:22 → PHEDA 17:40 → N06 20:00
PROVIDERS: ADMIT Hospitalist; ATTEND Hospitalist